=== PATIENT | female | born 1985 | race Caucasian/White ===

== ENCOUNTER 2022-06-09 16:16 | Emergency (ER) | payer OTHER, SELFPAY ==
[2022-06-09 16:19] VITALS: BP 126/78; PULSE 92; RESP 20; TEMP 36.7; O2SAT 100
--- NOTE | 2022-06-09 16:50 | PC.NURSE ---
PT DOES HAVE ONE PLACEMENT AT [facility] IN [place]. PT SAID TO HAVE A FAMILY THERE ALSO, ONE DAUGHTER, LACKS INTEREST IN SEEING HER. PT IS FLAT, DENIED NEEDS. PT HS BEEN WARNED THAT IF SHE GOES BACK TO ADDRESS SHE WAS PICKED UP FROM, SHE WILL BE ARRESTED. DENIED ALLERGIES, DENIED MEDICATION USE, DENIED SUBSTANCE ABUSE
[2022-06-09 17:05] LABS: Basophils Percent Auto 0.5 % (0.2-1.2); Eosinophils Absolute Auto 0.1 K/mm3 (0-0.3); Hematocrit 36.6 % (37.0-47.0); Immature Granulocyte Absolute 0.02 K/mm3 (0.00-0.031); Immature Granulocyte Percent A 0.2 % (0-0.5); Lymphocytes Absolute Auto 3.73 K/mm3 (0.9-3.2); Lymphocytes Percent Auto 45.4 % (18.3-44.2); Mean Corpuscular HGB Conc 32.8 g/dl (32-36); Mean Corpuscular Hemoglobin 29.3 pg (26-34); Mean Corpuscular Volume 89.3 fl (80-100); Mean Platelet Volume 9.4 fl (7.4-10.4); Monocytes Absolute Auto 0.8 K/mm3 (0.1-0.6); Monocytes Percent Auto 9.7 % (2.6-8.5); Neutrophils Absolute Auto 3.6 K/mm3 (1.3-6.7); Neutrophils Percent Auto 43.2 % (45.5-73.1); Platelet Count Result 267 k/mm3 (150-375); Red Cell Distribution Width 13.2 % (11.5-14.5); White Blood Count 8.2 K/mm3 (4.5-10.0)
[2022-06-09 17:16] LABS: Acetaminophen < 10 ug/mL (10-30); Ethanol < 10 mg/dL (<10); Salicylate < 1.0 mg/dL (2-20)
[2022-06-09 17:17] LABS: Alanine Aminotransferase 29 U/L (6-35); Albumin Level 4.5 g/dL (3.5-5.1); Alkaline Phosphatase 74 U/L (38-126); Anion Gap 9 mmol/L (8-16); Bilirubin,Total 0.3 mg/dL (0.2-1.3); Blood Urea Nitrogen 8 mg/dL (7-17); Calcium 8.8 mg/dL (8.4-10.2); Carbon Dioxide 26 mmol/L (22-30); Chloride 104 mmol/L (98-107); Estimated CRCL calculation 112 ml/min; Estimated Glomerular Filt Rate > 60; Glucose 92 mg/dL (65-110); Potassium 4.2 mmol/L (3.4-5.0); Sodium 139 mmol/L (137-145)
[2022-06-09 17:25] LABS: Amphetamine Screen Urine Negative (Negative); Barbiturate Screen Urine Negative (Negative); Benzodiazepines Screen Urine Negative (Negative); Cannabinoid Screen Urine Positive (Negative); Cocaine Screen Urine Negative (Negative); Methadone Screen Urine Negative (Negative); Opiate Screen Urine Negative (Negative); Phencyclidine Screen Urine Negative (Negative)
[2022-06-09 17:27] LABS: Aspartate Amino Transferase 50 U/L (14-36)
--- NOTE | 2022-06-09 17:35 | ED.AMS ---
HPI - Altered Mental Status General Chief Complaint: Altered Mental Status Stated Complaint: psyvh eval Time Seen by Provider: 06/09/22 17:06 Source: patient Mode of arrival: EMS Limitations: no limitations History of Present Illness HPI narrative: 36-year-old otherwise healthy was brought in by EMS with complaints was patient was found in somebody's house this evening she states that she is lives there and there were several people in the house. She presently denies any suicidal or homicidal ideation. She denies alcohol use or drug use. As per the EMS patient was released from psychiatric facility in [place] recently. Related Data Home Medications Medication Instructions Recorded Confirmed No Home Medications 06/09/22 06/09/22 Allergies Allergy/AdvReac Type Severity Reaction Status Date / Time No Known Allergies Allergy Verified 06/09/22 16:34 Review of Systems Constitutional: Constitutional: Reports no additional constitutional complaints Eyes: Eyes: Reports no additional eye complaints ENT: Reports system reviewed and no additional complaints, except as documented Cardiovascular: Cardiovascular: Reports no additional cardiovascular complaints Respiratory: Respiratory: Reports no additional respiratory complaints Gastrointestinal: Gastrointestinal: Reports no additional gastrointestinal complaints Musculoskeletal: Musculoskeletal: Reports no additional musculoskeletal complaints Integumentary/Breasts: Skin/Breast: Reports system reviewed and no additional complaints, except as docu Neurologic: Reports system reviewed and no additional complaints, except as documented Psychiatric: Psychiatric: Reports no additional psychiatric complaints PMFSH Social History Social History Substance use type: does not use Exam Narrative: GENERAL: Well-appearing, well-nourished, and in no acute distress. HEAD: Normocephalic, atraumatic. EYES: PERRLA and EOMI. NECK: Supple. CHEST: Clear to auscultation. No respiratory distress. HEART: Regular rate and rhythm. No murmur heard. Normal peripheral pulses. ABDOMEN: Soft, nontender, nondistended, normal active bowel sounds. EXTREMITIES: Normal range of motion. No edema. SKIN: Warm, dry, no rash. NEURO: No focal deficits. Alert and oriented x3. PSYCH: Normal mood and affect. Course Vital Signs Vital signs: Vital Signs Temperature 36.7 C 06/09/22 16:19 Pulse Rate 92 06/09/22 16:19 Respiratory Rate 20 06/09/22 16:19 Blood Pressure 126/78 06/09/22 16:19 Pulse Oximetry 100 06/09/22 16:19 Oxygen Delivery Room Air 06/09/22 16:19 Temperature 36.7 C 06/09/22 16:19 Pulse Rate 90 06/09/22 21:57 Respiratory Rate 16 06/09/22 21:57 Blood Pressure 124/78 06/09/22 21:57 Pulse Oximetry 99 06/09/22 21:57 Oxygen Delivery Room Air 06/09/22 16:19 MDM - Altered Mental Status MDM Narrative Medical decision making narrative: Patient presently calm and cooperative in no distress she is medically stable for psychiatric evaluation. Lab Data Result diagrams: 06/09/22 16:56 06/09/22 16:56 Labs: Lab Results 06/09/22 06/09/22 06/09/22 Range/Units 16:56 16:56 16:56 WBC 8.2 (4.5-10.0) K/mm3 RBC 4.10 L (4.2-5.4) M/mm3 Hgb 12.0 (12.0-15.0) g/dL Hct 36.6 L (37.0-47.0) % MCV 89.3 (80-100) fl MCH 29.3 (26-34) pg MCHC 32.8 (32-36) g/dl RDW 13.2 (11.5-14.5) % Plt Count 267 (150-375) k/mm3 MPV 9.4 (7.4-10.4) fl Immature Gran % (Auto) 0.2 (0-0.5) % Neut % (Auto) 43.2 L (45.5-73.1) % Lymph % (Auto) 45.4 H (18.3-44.2) % Dundy % (Auto) 9.7 H (2.6-8.5) % Eos % (Auto) 1.0 (0-4.4) % Baso % (Auto) 0.5 (0.2-1.2) % Lymph # (Auto) 3.73 H (0.9-3.2) K/mm3 Dundy # (Auto) 0.8 H (0.1-0.6) K/mm3 Eos # (Auto) 0.1 (0-0.3) K/mm3 Baso # (Auto) 0.0 (0.0-0.1) K/mm3 Abs Renetta
[2022-06-09 17:42] LABS: SARS-CoV-2 RNA PCR Negative
[2022-06-09 17:49] LABS: Thyroid Stimulating Hormone < 0.015 uIU/mL (0.465-4.680)
--- NOTE | 2022-06-09 17:56 | PC.NURSE ---
pt medically cleared at this time.
--- NOTE | 2022-06-09 17:59 | PC.NURSE ---
voice mail for crisis @ [phone]
[2022-06-09 18:55] LABS: Appearance Urine Clear (Clear); Bilirubin Urine Negative (Negative); Blood Urine Negative (Negative); Color Urine Yellow (Yellow); Glucose Urine UA Negative (Negative); Ketones Urine Negative (Negative); Leukocyte Esterase Ur Negative LEU/UL (Negative); Nitrate Urine Negative (Negative); Protein Urine Negative (Negative); Specific Grav Ur 1.015 (1.001-1.035); Urobilinogen Urine 0.2 mg/dL (<2.0); pH Urine 6.5 (5.0-9.0)
[2022-06-09 19:01] LABS: Add Urine Microscopic? NO
--- NOTE | 2022-06-09 20:23 | PC.NURSE ---
[facility] denied pt at this time- no beds [facility] have been faxed
--- NOTE | 2022-06-09 20:50 | PC.NURSE ---
pt not feeling like she needs to be placed, still feels like she owns the home she was picked up in. pt was educated that she would be placed involuntarily. unsure if the pt understands this.
--- NOTE | 2022-06-09 21:29 | PC.NURSE ---
[facility] asking for the pt to have t3 and t4 drawn d/t low thyroid intake rep [facility] can be called at [phone] and results can be faxed to [phone]
[2022-06-09 21:57] VITALS: BP 124/78; PULSE 90; RESP 16; O2SAT 99
[2022-06-09 22:15] LABS: Total Triiodothyronine (T3) 1.84 NG/ML (0.97-1.69)
== END 2022-06-09 22:49 ==
PROVIDERS: Emergency Provider Family Medicine
DX: F29 Unspecified psychosis not due to a substance or known physiological condition (principal); Z20.822 Contact with and (suspected) exposure to COVID-19
CPT/HCPCS: 36415; 80053; 80307; 81003; 81025; 84439; 84443; 84480; 85025; 99285; C9803; U0003; U0005